=== PATIENT | male | born 1995 | race Caucasian/White ===

== ENCOUNTER 2022-12-28 00:07 | Emergency (ER) | payer OTHER ==
[~2022-12-28] VITALS: Ht 175.3 cm; Wt 100.1 kg
[2022-12-28] MEDS ORDERED: IBUP80TA PO (01:34)
[2022-12-28] MEDS ORDERED: AMOX875T2 PO (01:34)
[2022-12-28] MEDS ORDERED: KETOROLAC 60MG 2ML VIAL IM ONE (01:35)
[2022-12-28] MEDS ORDERED: AUGMENTIN 875 MG TAB PO ONE (01:35)
[2022-12-28 01:48] VITALS: BP 179/105
== END 2022-12-28 01:50 | disposition home or self-care (01) ==
LOC: M ED 00:07
DX: K02.9 Dental caries, unspecified (principal); K08.9 Disorder of teeth and supporting structures, unspecified; F17.210 Nicotine dependence, cigarettes, uncomplicated
CPT/HCPCS: 96372; 99283; J1885